=== PATIENT | female | born 1950 | race Caucasian/White ===

== ENCOUNTER 2017-03-25 22:32 | Emergency (ER) | payer MEDICAID ==
[~2017-03-25] VITALS: Ht 160 cm; Wt 66.0 kg
[~2017-03-25 22:32] MED LIST: ATOR10TA PO; Aspirin PO; FURO-151 PO; LISI-651 PO; MULT-1146 PO; POTA20TA82 PO
[2017-03-25] MEDS ORDERED: BACITRACIN ZINC OINT UDPKT TOP ONE (23:45)
[2017-03-25] MEDS ORDERED: ACETAMINOPHEN 500MG TABLET PO ONE (23:45)
[2017-03-26 01:59] VITALS: BP 140/90
== END 2017-03-26 02:02 | disposition home or self-care (01) ==
LOC: ER 22:33
DX: S01.01XA Laceration without foreign body of scalp, initial encounter (principal); I50.9 Heart failure, unspecified; I11.0 Hypertensive heart disease with heart failure; E11.9 Type 2 diabetes mellitus without complications; W20.8XXA Other cause of strike by thrown, projected or falling object, initial encounter; Y93.89 Activity, other specified; Y92.89 Other specified places as the place of occurrence of the external cause; Y99.8 Other external cause status
CPT/HCPCS: 12001; 70450; 99284; X7700; Z7610

== ENCOUNTER 2018-09-16 16:07 | Emergency (ER) | payer MEDICAID, MEDICARE ==
[~2018-09-16] VITALS: Ht 160 cm; Wt 68.0 kg
[2018-09-16] MEDS ORDERED: ONDANSETRON HCL 4MG/2ML INJ IV STA (16:28)
[2018-09-16] MEDS ORDERED: MORPHINE SULFATE 4 MG/ML CPJ (NOT FOR IM USE) IV STA (16:28)
[2018-09-16 19:34] VITALS: BP 101/58
[2018-09-16] MEDS ORDERED: ONDANSETRON 4MG ODT PO ONE (20:15)
== END 2018-09-16 22:11 | disposition home or self-care (01) ==
LOC: ER 16:07
DX: S42.211A Unspecified displaced fracture of surgical neck of right humerus, initial encounter for closed fracture (principal); I11.0 Hypertensive heart disease with heart failure; I50.9 Heart failure, unspecified; Z90.89 Acquired absence of other organs; Z88.1 Allergy status to other antibiotic agents; Z79.899 Other long term (current) drug therapy; Z79.82 Long term (current) use of aspirin
CPT/HCPCS: 73030; 73080; 93005; 96374; 96375; 99283; J2270; J2405; Q0162; A4565